=== PATIENT | male | born 1990 | race Two or more races ===

== ENCOUNTER 2018-07-21 21:59 | Emergency (ER) | payer BC, OTHER ==
[2018-07-21] MEDS ORDERED: Ketorolac 60 MG/2 ML SDV IM ONE (22:44)
--- NOTE | 2018-07-21 23:02 | EDM.PDOC ---
ED HPI GENERAL MEDICAL PROBLEM - General Chief Complaint: Back Pain or Injury Stated Complaint: LOWER BACK PAIN Time Seen by Provider: 07/21/18 22:20 Source of Information: Reports: Patient History Limitations: Reports: No Limitations - History of Present Illness INITIAL COMMENTS - FREE TEXT/NARRATIVE: The patient presents with upper low back pain. He was at the gym and squatting 245 pounds. It is an easy weight for him and he was somewhat relaxed and when he went down he heard and felt a pop in his upper low back. He denies numbness or weakness in his legs. He has no bowel or bladder problems. He has not had trouble with his back before. Onset: Sudden Duration: Minutes: Location: Reports: Back Quality: Reports: Sharp Severity: Moderate Improves with: Reports: Immobilization Associated Symptoms: Reports: No Other Symptoms Lower Back Pain Score (Numeric/FACES): 10 - Related Data Allergies Allergy/AdvReac Type Severity Reaction Status Date / Time No Known Allergies Allergy Verified 07/21/18 22:25 Home Meds: Home Meds . [No Known Home Meds] 07/21/18 [History] Past Medical History - Past Surgical History HEENT Surgical History: Reports: MILDRED Social & Family History - Tobacco Use Smoking Status *Q: Never Smoker - Caffeine Use Caffeine Use: Reports: Coffee, Energy Drinks, Soda, Tea - Recreational Drug Use Recreational Drug Use: No ED ROS GENERAL - Review of Systems Review Of Systems: See Below Constitutional: Reports: No Symptoms HEENT: Reports: No Symptoms Respiratory: Reports: No Symptoms Cardiovascular: Reports: No Symptoms Endocrine: Reports: No Symptoms GI/Abdominal: Reports: No Symptoms : Reports: No Symptoms Musculoskeletal: Reports: Back Pain Neurological: Reports: No Symptoms ED EXAM,LOWER BACK PAIN/INJURY - Physical Exam Exam: See Below Exam Limited By: No Limitations General Appearance: Alert, No Apparent Distress Ears: Normal External Exam Nose: Normal Inspection Head: Atraumatic, Normocephalic Neck: Normal Inspection Respiratory/Chest: No Respiratory Distress, Lungs Clear, Normal Breath Sounds Cardiovascular: Regular Rate, Rhythm, No Edema, No Murmur GI/Abdominal: Soft, Non-Tender, No Organomegaly, No Mass Back Exam: Other (Pain upon palpation to the upper low back) Extremities: Normal Inspection Neurological: Alert, No Motor/Sensory Deficits, Oriented x 3 Course - Vital Signs Last Recorded V/S: Last Vital Signs Temp 97.8 F 07/21/18 22:20 Pulse 59 L 07/21/18 22:20 Resp 20 07/21/18 22:20 BP 142/74 H 07/21/18 22:20 Pulse Ox 96 07/21/18 22:20 - Orders/Labs/Meds Orders: Active Orders 24 hr Category Date Time Status Lumbar Spine 2 or 3V [CR] Stat Exams 07/21/18 22:44 Ordered Meds: Medications Discontinued Medications Generic Name Dose Route Start Last Admin Trade Name Amada PRN Reason Stop Dose Admin Ketorolac Tromethamine 60 mg 07/21/18 22:44 07/21/18 22:53 Toradol IM 07/21/18 22:45 60 mg ONETIME ONE Administration - Re-Assessments/Exams Free Text/Narrative Re-Assessment/Exam: 07/21/18 23:09 I ordered a shot of toradol 60mg IM and an x-ray of the lumbar spine. 07/21/18 23:12 His x-ray shows some mild scoliosis. I will get him on some flexeril, an antiinflammatory and some hydrocodone. Departure - Departure Time of Disposition: 23:15 Disposition: Home, Self-Care 01 Condition: Good Clinical Impression: Lumbar strain Qualifiers: Encounter type: initial encounter Qualified Code(s): S39.012A - Strain of muscle, fascia and tendon of lower back, initial encounter Lumbar scoliosis Qualifiers: Scoliosis type: idiopathic Idiopathic scoliosis type: other Qualified Code(s): M41.26 - Other idiopathic scoliosis, lumbar region - Discharge Information *PRESCRIPTION DRUG MONITORING PROGRAM REVIEWED*: No *COPY OF PRESCRIPTION DRUG MONITORING REPORT IN PATIENT MARLA: No Referrals: PCP,None [Primary Care Provider] - Juana Crews PA-C [Physician Data Operations Leader] - 1 Week Forms: ED Department Discharge Additional Instructions: Take the flexeril every 8 hours as needed for pain. Take an antiinflammatory such as motrin or aleve for pain. If that does not help take some hydrocodone. Do not left heavy until the pain is better. Please return if you are worse. - My Orders Last 24 Hours: My Active Orders 07/21/18 22:44 Lumbar Spine 2 or 3V [CR] Stat - Assessment/Plan Last 24 Hours: My Active Orders 07/21/18 22:44 Lumbar Spine 2 or 3V [CR] Stat
--- NOTE | 2018-07-22 06:48 | CR ---
Lumbar spine: AP and lateral views of the lumbar spine were obtained. Vertebral body heights are maintained. Minimal disc space narrowing is noted at L4-L5. Pedicles are intact. No subluxation or fracture is seen. Pseudoarticulation of an enlarged transverse processes seen at the lumbosacral junction on the left side to the sacrum compatible with a transitional segment. Sacroiliac joints are within normal limits. Joint spaces within both hips are maintained. Impression: 1. 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 2. Slight disc space narrowing at L4-L5. 3. No additional abnormality is seen. Diagnostic code #2
== END 2018-07-21 23:22 | disposition home or self-care (01) ==
LOC: JD.ED 21:59
DX: S39.012A Strain of muscle, fascia and tendon of lower back, initial encounter (principal); M41.26 Other idiopathic scoliosis, lumbar region; X50.1XXA Overexertion from prolonged static or awkward postures, initial encounter
CPT/HCPCS: 72100; 96372; 99283; J1885

== ENCOUNTER 2020-05-26 09:42 | Emergency (ER) | payer SELFPAY ==
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
--- NOTE | 2020-05-27 10:45 | CR ---
Left fourth finger: From the second to the left fourth finger were obtained. Comparison: No previous study is available. No radiopaque foreign object is seen. Joint spaces are preserved. No acute fracture or other bony abnormality is appreciated. Impression: 1. Nothing acute is appreciated on the left fourth finger exam. Diagnostic code #1
== END 2020-05-26 10:44 | disposition home or self-care (01) ==
LOC: JD.ED 09:42
DX: S61.213A Laceration without foreign body of left middle finger without damage to nail, initial encounter (principal); W34.09XA Accidental discharge from other specified firearms, initial encounter; Y92.009 Unspecified place in unspecified non-institutional (private) residence as the place of occurrence of the external cause
CPT/HCPCS: 73140-26-F3; 73140-F3; 99282; 99283-25